=== PATIENT | male | born 1950 | race Caucasian/White ===

== ENCOUNTER 2021-05-01 11:34 | Emergency (ER) | payer OTHER ==
[2021-05-01 12:18] LABS: Basophils % 0.5 % (0-1.3); Hematocrit 43.5 % (39.6-49.0); MPV 8.2 fL (7.6-11.3); RBC Red Blood Cell Count 4.87 M/uL (4.33-5.43)
[2021-05-01 12:19] LABS: Protime INR 1.05
[2021-05-01 12:36] LABS: ALT/SGPT 19 U/L (12-78); AST/SGOT 12 U/L (15-37); Albumin 4.3 g/dL (3.4-5.0); Alkaline Phosphatase 63 U/L (45-117); BUN Blood Urea Nitrogen 15 mg/dL (7-18); Bicarbonate 24 mmol/L (21-32); Bilirubin Direct 0.1 mg/dL (0-0.2); Bilirubin Total 0.5 mg/dL (0.2-1.0); Glucose Level 133 mg/dL (74-106); Magnesium 2.1 mg/dL (1.8-2.4); NT PRO-BNP 245 pg/mL (<125); Potassium 4.1 mmol/L (3.5-5.1); Protein, Total 7.9 g/dL (6.4-8.2); Sodium Level 143 mmol/L (136-145); Troponin (Emerg Dept Use Only) < 0.02 ng/mL (0.0-0.045)
[2021-05-01] MEDS ORDERED: NA CHLORIDE 0.9% 1,000 ML ONE ×2 (12:40→14:59)
--- NOTE | 2021-05-01 13:26 | RAD REPORT ---
EXAM DESCRIPTION: CT - Head Brain Wo Cont - 05/01/2021 12:56 pm CLINICAL HISTORY: DIZZINESS COMPARISON: No comparisons TECHNIQUE: Axial 5 mm thick images of the head were obtained without IV contrast. All CT scans are performed using dose optimization technique as appropriate and may include automated exposure control or mA/KV adjustment according to patient size. FINDINGS: No intracranial hemorrhage, mass, edema or shift of mid-line structures. No acute infarcti on changes seen. No abnormal extra-axial fluid collections. Ventricles are normal. No significant at rophy or chronic ischemic change. Dense arterial tree calcifications are present. Mastoid air cells and visualized portions of the paranasal sinuses are clear. No acute bony findings. Due to technical malfunctions, final report could not be generated at the time of the study. Findings were telephoned to the referring physician. IMPRESSION: Negative non-contrast CT head examination for acute or significant finding.
--- NOTE | 2021-05-01 14:45 | ER ---
Nurse's Notes [facility] Name: Quincy Combs Jr Age: 70 yrs Sex: Male : 1950 Arrival Date: 05/01/2021 Time: 11:37 Bed 23 Private MD: Semaj Chapman Diagnosis: Dizziness and giddiness Presentation: 05/01 11:50 Chief complaint: Patient states: States dizziness began Friday morning. States becomes vg1 dizzy when standing from a sitting position. Denies NV, headache, cough, and ear pain. Stated had diarrhea this morning. Also stated had an ultrasound about a year ago on PRAVEENA legs and was told had 'blockage' in both legs and states that PCP increased Simvastatin from 20 mg to 80 mg. Also states has had a decreased appetite since Friday as well. Coronavirus screen: Vaccine status: Patient reports receiving the 2nd dose of the covid vaccine. Client denies travel out of the [place] in the last 14 days. Ebola Screen: Patient negative for fever greater than or equal to 101.5 degrees Fahrenheit, and additional compatible Ebola Virus Disease symptoms. 11:50 Method Of Arrival: Wheelchair vg1 11:50 Initial Sepsis Screen: Does the patient meet any 2 criteria? No. Patient's initial vg1 sepsis screen is negative. Does the patient have a suspected source of infection? No. Patient's initial sepsis screen is negative. Risk Assessment: Do you want to hurt yourself or someone else? Patient reports no desire to harm self or others. Onset of symptoms was April 29, 2021. 11:50 Acuity: HIRAM 3 vg1 Triage Assessment: 11:54 General: Appears in no apparent distress. comfortable, Behavior is calm, cooperative. vg1 Pain: Denies pain. Historical: - Allergies: 11:54 No Known Allergies; vg1 - Home Meds: 11:54 Simvastatin Oral [Active]; Paxil Oral [Active]; vg1 - PMHx: 11:54 High Cholesterol; vg1 - Immunization history:: Adult Immunizations up to date, Client reports receiving the 2nd dose of the Covid vaccine. - Social history:: Smoking status: Patient reports the use of cigarette tobacco products, smokes one-half pack cigarettes per day. - Family history:: not pertinent. Screenin:30 Abuse screen: Denies threats or abuse. Denies injuries from another. Nutritional ld1 screening: No deficits noted. Tuberculosis screening: No symptoms or risk factors identified. Fall Risk None identified. Assessment: 12:10 General: Appears in no apparent distress. comfortable, Behavior is calm, cooperative, ld1 appropriate for age. 12:10 Pain: Denies pain. Neuro: Level of Consciousness is awake, alert, obeys commands, ld1 Oriented to person, place, time, situation. Neuro: Reports dizziness. Cardiovascular: Capillary refill < 3 seconds Patient's skin is warm and dry. Rhythm is regular. Respiratory: Airway is patent Respiratory effort is even, unlabored, Respiratory pattern is regular, symmetrical. GI: Abdomen is flat, non-distended. : No signs and/or symptoms were reported regarding the genitourinary system. EENT: No signs and/or symptoms were reported regarding the EENT system. Derm: No signs and/or symptoms reported regarding the dermatologic system. Musculoskeletal: No signs and/or symptoms reported regarding the musculoskeletal system. 14:08 Reassessment: Patient appears in no apparent distress at this time. Patient and/or ld1 family updated on plan of care and expected duration. Pain level reassessed. Patient is alert, oriented x 3, equal unlabored respirations, skin warm/dry/pink. Patient denies pain at this time. Patient states feeling better. Vital Signs: 11:50 BP 136 / 84; Pulse 83; Resp 16; Temp 98.5; Pulse Ox 100% ; Weight 77.11 kg; Height 5 vg1 ft. 8 in. (172.72 cm); Pain 0/10; 12:30 BP 143 / 76; Pulse 66; Resp 18; Pulse Ox 100% on R/A; Pain 0/10; ld1 13:00 BP 134 / 83; Pulse 64; Resp 19; Pulse Ox 100% on R/A; Pain 0/10; ld1 14:08 BP 125 / 67; Pulse 80; Resp 18; Pulse Ox 100% on R/A; Pain 0/10; ld1 11:50 Body Mass Index 25.85 (77.11 kg, 172.72 cm) vg1 ED Course: 11:37 Patient arrived in ED. mr 11:37 Semaj Chapman, is Private Physician. mr 11:54 Triage completed. vg1 11:54 Arm band placed on. vg1 11:59 Destiny Prasad MD is Attending Physician. ma2 12:12 Umm Mackey, RN is Primary Nurse. ld1 12:19 CT Head Brain wo Cont In Process Unspecified. EDMS 12:30 Patient has correct armband on for positive identification. Placed in gown. Bed in low ld1 position. Call light in reach. Side rails up X2. property assessment monitor on. Pulse ox on. NIBP on. Door closed. Noise minimized. Warm blanket given. 12:30 No provider procedures requiring assistance completed. Inserted saline lock: 20 gauge ld1 in right antecubital area, using aseptic technique. Blood collected. 13:50 XRAY Chest (1 view) In Process Unspecified. EDMS 15:22 IV discontinued, intact, bleeding controlled, No redness/swelling at site. ld1 Administered Medications: 12:36 Drug: NS 0.9% 1000 ml Route: IV; Rate: 1 bolus; Site: right antecubital; ld1 14:37 Drug: NS 0.9% 1000 ml Route: IV; Rate: 1 bolus; Site: right antecubital; ld1 Outcome: 14:44 Discharge ordered by . ma2 15:22 Discharged to home ambulatory. ld1 15:22 Condition: stable 15:22 Discharge instructions given to patient, family, Instructed on discharge instructions, follow up and referral plans. Demonstrated understanding of instructions, follow-up care. 15:22 Patient left the ED. ld1 Signatures: Dispatcher [employer] EDMS Alycia Peters mr Destiny Prasad MD MD ma2 Carola ePrez RN RN 1 Umm Mackey, LI RN ld1 Corrections: (The following items were deleted from the chart) 13:07 12:12 CORONAVIRUS+[email or web address] drawn and sent. ld1 EDMS
--- NOTE | 2021-05-01 14:45 | EDPHYS ---
Physician Documentation [facility] Name: Quincy Combs Jr Age: 70 yrs Sex: Male : 1950 Arrival Date: 05/01/2021 Time: 11:37 Bed 23 Private MD: Ari [facility] ED Physician Destiny Prasad HPI: 05/01 12:21 This 70 yrs old Male presents to ER via Wheelchair with complaints of ma2 Dizziness. 12:21 The patient presents with dizziness, feeling faint. Onset: The symptoms/episode ma2 began/occurred gradually, 2 day(s) ago. Associated signs and symptoms: Pertinent negatives: blurred vision, confusion, focal weakness, palpitations, , shortness of breath. Severity of symptoms: At their worst the symptoms were mild in the emergency department the symptoms are unchanged. The patient has experienced similar episodes in the past. Historical: - Allergies: 11:54 No Known Allergies; vg1 - Home Meds: 11:54 Simvastatin Oral [Active]; Paxil Oral [Active]; vg1 - PMHx: 11:54 High Cholesterol; vg1 - Immunization history:: Adult Immunizations up to date, Client reports receiving the 2nd dose of the Covid vaccine. - Social history:: Smoking status: Patient reports the use of cigarette tobacco products, smokes one-half pack cigarettes per day. - Family history:: not pertinent. ROS: 12:21 Constitutional: Negative for fever, chills, and weight loss. ma2 12:21 All other systems are negative. Exam: 12:21 Constitutional: This is a well developed, well nourished patient who is awake, alert, ma2 and in no acute distress. Head/Face: Normocephalic, atraumatic. Eyes: Pupils equal round and reactive to light, extra-ocular motions intact. Lids and lashes normal. Conjunctiva and sclera are non-icteric and not injected. Cornea within normal limits. Periorbital areas with no swelling, redness, or edema. ENT: Nares patent. No nasal discharge, no septal abnormalities noted. Tympanic membranes are normal and external auditory canals are clear. Oropharynx with no redness, swelling, or masses, exudates, or evidence of obstruction, uvula midline. Mucous membranes moist. Neck: Trachea midline, no thyromegaly or masses palpated, and no cervical lymphadenopathy. Supple, full range of motion without nuchal rigidity, or vertebral point tenderness. No Meningismus. Chest/axilla: Normal chest wall appearance and motion. Nontender with no deformity. No lesions are appreciated. Cardiovascular: Regular rate and rhythm with a normal S1 and S2. No gallops, murmurs, or rubs. Normal PMI, no JVD. No pulse deficits. Respiratory: Lungs have equal breath sounds bilaterally, clear to auscultation and percussion. No rales, rhonchi or wheezes noted. No increased work of breathing, no retractions or nasal flaring. Abdomen/GI: Soft, non-tender, with normal bowel sounds. No distension or tympany. No guarding or rebound. No evidence of tenderness throughout. Back: No spinal tenderness. No costovertebral tenderness. Full range of motion. Skin: Warm, dry with normal turgor. Normal color with no rashes, no lesions, and no evidence of cellulitis. MS/ Extremity: Pulses equal, no cyanosis. Neurovascular intact. Full, normal range of motion. Neuro: Awake and alert, GCS 15, oriented to person, place, time, and situation. Cranial nerves II-XII grossly intact. Motor strength 5/5 in all extremities. Sensory grossly intact. Cerebellar exam normal. Normal gait. Vital Signs: 11:50 BP 136 / 84; Pulse 83; Resp 16; Temp 98.5; Pulse Ox 100% ; Weight 77.11 kg; Height 5 vg1 ft. 8 in. (172.72 cm); Pain 0/10; 12:30 BP 143 / 76; Pulse 66; Resp 18; Pulse Ox 100% on R/A; Pain 0/10; ld1 13:00 BP 134 / 83; Pulse 64; Resp 19; Pulse Ox 100% on R/A; Pain 0/10; ld1 14:08 BP 125 / 67; Pulse 80; Resp 18; Pulse Ox 100% on R/A; Pain 0/10; ld1 11:50 Body Mass Index 25.85 (77.11 kg, 172.72 cm) vg1 MDM: 11:59 Patient medically screened. nj2 12:21 Differential diagnosis: hypovolemia, near-syncope, syncope, vertigo. Data reviewed: nj2 vital signs, nurses notes. 14:42 Counseling: I had a detailed discussion with the patient and/or guardian regarding: the ma2 historical points, exam findings, and any diagnostic results supporting the discharge/admit diagnosis, the presence of at least one elevated blood pressure reading (>120/80) during this emergency department visit, the need for outpatient follow up. Response to treatment: the patient's symptoms have markedly improved after treatment. Admission orders: after a detailed discussion of the patient's condition and case, the admit orders are written by me. ED course: i offered admission for obs for further eval, patient feels better and want to go home against recommendation understand risk. 05/01 12:00 Order name: Basic Metabolic Panel; Complete Time: 13:56 ma2 05/01 12:00 Order name: CBC with Diff; Complete Time: 13:56 nj2 05/01 12:00 Order name: LFT's; Complete Time: 13:56 nj2 05/01 12:00 Order name: Magnesium; Complete Time: 13:56 nj2 05/01 12:00 Order name: NT PRO-BNP; Complete Time: 13:56 nj2 05/01 12:00 Order name: PT-INR; Complete Time: 13:56 nj2 05/01 12:00 Order name: Troponin (emerg Dept Use Only); Complete Time: 13:56 nj2 05/01 12:00 Order name: XRAY Chest (1 view) [facility] 05/01 12:00 Order name: EKG; Complete Time: 12:01 [facility] 05/01 12:11 Order name: CT Head Brain wo Cont; Complete Time: 13:56 nj2 05/01 13:05 Order name: SARS-COV-2 RT PCR [facility] 05/01 12:00 Order name: Cardiac monitoring; Complete Time: 12:12 nj2 05/01 12:00 Order name: EKG - Nurse/Tech; Complete Time: 12:36 nj2 05/01 12:00 Order name: IV Saline Lock; Complete Time: 12:12 nj2 05/01 12:00 Order name: Labs collected and sent; Complete Time: 12:12 nj2 05/01 12:00 Order name: O2 Per Protocol; Complete Time: 12:12 [facility] 05/01 12:00 Order name: O2 Sat Monitoring; Complete Time: 12:12 nj2 05/01 12:00 Order name: Urine Dipstick-Ancillary (obtain specimen); Complete Time: 12:36 ma2 Administered Medications: 12:36 Drug: NS 0.9% 1000 ml Route: IV; Rate: 1 bolus; Site: right antecubital; ld1 14:37 Drug: NS 0.9% 1000 ml Route: IV; Rate: 1 bolus; Site: right antecubital; ld1 Disposition Summary: 05/01/21 14:44 Discharge Ordered Location: Home ma2 Condition: Stable ma2 Diagnosis - Dizziness and giddiness ma2 Followup: ma2 - With: Private Physician - When: Tomorrow - Reason: Continuance of care Discharge Instructions: - Discharge Summary Sheet ma2 - Dizziness ma2 Forms: - Medication Reconciliation Form ma2 - Thank You Letter ma2 - Antibiotic Education ma2 - Prescription Opioid Use ma2 Signatures: Dispatcher [employer] EDMS Destiny Prasad MD MD ma2 Carola Perez RN RN vg1 Umm Mackey RN RN ld1 Corrections: (The following items were deleted from the chart) 13:07 12:01 CORONAVIRUS+[email or web address] ordered. EDMS EDMS
--- NOTE | 2021-05-01 15:02 | RAD REPORT ---
EXAM DESCRIPTION: [place] Single View05/01/2021 1:50 pm CLINICAL HISTORY: hx of smoker - 40 years 1/2 pack a day. Dizziness COMPARISON: none FINDINGS: Lungs are moderately hyperaerated. The lungs appear clear of acute infiltrate. The heart i s normal size IMPRESSION: Moderately hyperaerated lungs likely COPD Patient may be a candidate for annual low dose lung cancer screening CT
[2021-05-01 15:35] VITALS: TEMP 98.5; O2SAT 100
[2021-05-01 15:39] VITALS: BP 125/67
[2021-05-04 09:48] LABS: Urine Blood 3+ (Negative); Urine Glucose Negative (Negative); Urine Protein Negative (Negative); Urine Specific Gravity 1.025 (1.005-1.030); Urine pH 5.5 (5.0-7.0)
== END 2021-05-01 15:22 | disposition home or self-care (01) ==
LOC: ER 11:34
DX: R42 Dizziness and giddiness (principal); E78.00 Pure hypercholesterolemia, unspecified; F17.210 Nicotine dependence, cigarettes, uncomplicated; Z20.822 Contact with and (suspected) exposure to COVID-19
CPT/HCPCS: 93005; 85025; 80048; 36415; 83735; 85610; 80076; 81003; 84484; 83880; 70450; 71045; 99284; U0003; J7030 ×2

== ENCOUNTER 2023-10-14 07:54 | Day surgery (SDC) | payer OTHER ==
--- NOTE | 2023-10-06 09:18 | RAD REPORT ---
EXAM DESCRIPTION: RAD - Chest Pa And Lat (2 Views) - 10/06/2023 9:11 am CLINICAL HISTORY: pre op pending TURBT Chest pain. COMPARISON: Chest Single View dated 05/01/2021 TECHNIQUE: PA and lateral views of the chest were obtained. FINDINGS: The lungs are hyperexpanded compatible with COPD. The heart is upper limit of normal in si ze. No fracture or aggressive bony process. IMPRESSION: COPD without acute process identified. The USPSTF recommends annual screening for lung cancer with low-dose CT (LDCT) in adults aged 50 to 80 years who have a 20 pack-year smoking history and currently smoke or have quit within the past 15 years.
[2023-10-06 09:45] LABS: Absolute Eosinophils 0.5 K/uL (0-0.5); Absolute Lymphocytes (CBC) 1.4 K/uL (0.7-4.9); Absolute Monocytes 0.4 K/uL (0.1-1.3); Absolute Neutrophil 3.3 K/uL (1.8-8.0); Basophils % 0.8 % (0-1.3); Eosinophils % 9.4 % (0-4.4); Hematocrit 37.3 % (39.6-49.0); Hemoglobin 12.7 g/dL (13.6-17.9); Lymphocytes % 24.9 % (15.3-44.8); MCH 30.7 pg (27.0-35.0); MCHC 34.1 g/dL (32.0-36.0); Monocytes % 7.2 % (3.3-12.3); Neutrophils % 57.7 % (41.7-73.7); Platelets 172 thou/uL (152-406); RBC Red Blood Cell Count 4.14 M/uL (4.33-5.43)
[2023-10-06 09:48] LABS: PT Prothrombin Time 10.8 SECONDS (9.5-12.5); PTT, Activated Partial Thromb 32.8 SECONDS (24.3-36.9); Protime INR 0.98
[2023-10-06 09:52] LABS: Anion Gap 5.1 mEq/L (5.0-15.0); Potassium 4.1 mEq/L (3.5-5.1)
[2023-10-14] MEDS ORDERED: Ringers Lactate 1,000 ML IV ONE (08:12)
[2023-10-14] MEDS ORDERED: propofoL 200 MG/20 ML VIAL IV ONE (09:20)
[2023-10-14] MEDS ORDERED: LIDOCAINE 1% MPF 5 ML VIAL ONE (09:20)
[2023-10-14] MEDS ORDERED: FENTANYL CITR 100 MCG/2 ML ONE (09:21)
[2023-10-14] MEDS ORDERED: ROCURONIUM 50 MG/5 ML VIAL IV ONE ×2 (09:21→11:58)
[2023-10-14] MEDS ORDERED: MIDAZOLAM HCL 2 MG/2 ML INJ ONE (09:21)
[2023-10-14] MEDS ORDERED: CEFAZOLIN SODIUM 1 GM/VIAL ONE ×2 (10:27→11:12)
[2023-10-14] MEDS ORDERED: LIDOCAINE 2% MPF 5 ML VIAL ONE (10:36)
[2023-10-14] MEDS ORDERED: dexAMETHasone 10 MG/ML VIAL ONE (10:51)
[2023-10-14] MEDS ORDERED: ONDANSETRON 4 MG/2 ML VIAL ONE (10:51)
[2023-10-14] MEDS ORDERED: EPHEDRINE SULF 50 MG/ML VIAL ONE (10:58)
[2023-10-14] MEDS: GEMCITABINE HCL 26.3 ML IS ONE (11:06)
[2023-10-14] MEDS ORDERED: NEOSTIGMINE 1 MG/ML -10 ML VIAL ONE (12:41)
[2023-10-14] MEDS ORDERED: GLYCOPYRROLATE 0.2 MG/ML SYR ONE ×2 (12:42)
[2023-10-14] MEDS: Ringers Lactate 1,000 ML IV ONE (12:58)
[2023-10-14] MEDS ORDERED: DIAZEPAM 10 MG/2 ML INJ SYRINGE IV ONE (13:14)
[2023-10-14] MEDS ORDERED: HYDROCODONE/APAP 5/325 MG TAB PO PRN (13:14)
[2023-10-14] MEDS ORDERED: OXYBUTYNIN ER 5 MG TAB PO ONE ×2 (13:20→13:22)
[2023-10-14] MEDS: OXYBUTYNIN ER 5 MG TAB PO ONE (13:24)
[2023-10-14] MEDS ORDERED: LIDOCAINE JELLY 2% 5 ML SYRINGE TOP ONE (14:11)
[2023-10-14] MEDS ORDERED: PHENAZOPYRIDINE 100MG TAB PO ONE (14:54)
[2023-10-14] MEDS: PHENAZOPYRIDINE 100MG TAB PO ONE (14:55)
[2023-10-14 15:53] VITALS: BP 118/64; TEMP 96.9; O2SAT 100
--- NOTE | 2023-10-14 17:18 | OP ---
Surgeon: ESME ROSA Preoperative Diagnosis: Extensive bladder tumor, greater than 5 to 7 cm. Postoperative Diagnosis: Extensive bladder tumor, greater than 5 to 7 cm. Principal Procedures: 1.Urethral dilation using sounds. 2.Transurethral resection of a bladder tumor larger than 5 to 7 cm. 3.Insertion of a urethral Pizarro catheter. 4.Instillation of gemcitabine 2 g in 50 cc normal saline intravesical chemotherapy. Findings: Extensive bladder tumor involving the bladder neck bilaterally, extending into the trigone bilaterally, covering the right ureteral orifice and extending posteriorly and laterally on the righ t. The right ureteral orifice was resected as it was grossly involved by the tumor until no additional p apillary tumor was noted emanating from the orifice itself. The left ureteral orifice was unaffected and visualized. At the end of the procedure, all visible tumor had been resected. Indication For Procedure: This is a 73-year-old gentleman who presented to the Urology Clinic with g ross hematuria and underwent cystoscopic evaluation following a negative CT urography which revealed a mass in the bladder that was on CT 5.9 x 4.2 cm in greatest axial dimension and 3.8 cm in craniocau yvonne extent. This was consistent with the finding seen cystoscopically, and he was counseled on the n eed for surgical resection for treatment as well as staging of his bladder cancer. Procedure In Detail: The patient was consented in the preoperative holding area before being transfe rred to the operative suite where general anesthesia was induced. He was given Ancef 2 g IV antimicr obial prophylaxis, and pneumo boots were provided for DVT prophylaxis. He was placed in the lithotom y position, padded and secured to the table appropriately. His genitalia were prepped with Hibiclens and he was draped in standard fashion. The case was begun using urethral sounds to dilate his meatu s and fossa navicularis to 28-Irish. I then was able to use a visual obturator and the 26-Irish re sectoscope sheath to traverse the urethra and ultimately into the bladder. Upon navigation beyond th e verumontanum into the prostatic urethra, immediately bulging into the proximal portion of the prost atic urethra at the bladder neck was papillary tumor. I was able to push past this into the bladder where the entire right lateral posterior wall was covered with tumor and the bladder neck was similar ly covered bilaterally obscuring visualization. As a result, I ensured his bladder was distended and began resection of the more superficial components of the tumor, whittling it down like cutting and trimming shrubs over the course of probably more than 45 minutes to an hour of resection. I was pipe hu able, after multiple rounds of Ellik evacuation to remove the burden of tumor, to visualize the n ear base component of the tumor and continued to resect it from the regions of the bladder, taking ca re to avoid inadvertent injury and perforation of the bladder. Eventually, I was able to resect the majority of the tumor from the bladder neck in its entirety and then continued the resection down unt il it was visible over the right ureteral orifice. I resected all tumor overlying the lateral aspect of the ureteral orifice and then the medial aspect involving the trigone before surveying the orific e itself. There was a papillary nature to some tissue bulging from the ureteral orifice; so I sharpl y resected a few millimeters of the ureteral orifice until no papillary tumor was noted emanating fro m within. I then continued the superficial resection of any additional visible mucosal change and tu mor where ever else in the bladder it was visible. Once all tumor had been Ellik evacuated from insi de his bladder, I then made a concerted effort to achieve hemostasis, fulgurating each and every blee ding and oozing vessel visible, taking care to avoid fulguration around the right ureteral orifice. I was able to separately visualize left ureteral orifice, which was uninvolved and uninjured. After extensive fulguration and gaining control over hemostasis, I ensured circulating tumor was removed an d again surveyed the entirety of the bladder, this time with more optimal visualization. Any additio nal residual mucosal change was similarly superficially resected and fulguration of the entirety of t he base of the tumor as well as some neovascularization emanating from the posterior wall of the blad amanda was also fulgurated again taking care to avoid injury to the left ureteral orifice or fulguration over the resected right ureteral orifice. In the end, no residual mucosal lesions were noted, and I ensured to Ellik evacuate or directly using direct visualization remove any residual floating papill anabelle urothelial neoplasms. Once I was confident that the bladder was hemostatic and all tumor tissue had been removed, I then placed an 18-Irish Pizarro catheter into his bladder with ease. 15 cc of ramy rile water was placed in the balloon, and I allowed the bladder to decompress completely. I then ret rograde instilled gemcitabine 2 g in 50 cc normal saline via the catheter into his bladder. I used a Neema clamp to keep the fluid instilled within and attached a leg bag for ease of subsequent decompr ession of the chemotherapy. Several towels were used as a fluid barrier around his genitalia to prev ent exposure of the chemotherapy to his skin, and a fluid impermeable drape was placed beneath the en tirety of the catheter and the towel structure. He was then taken out of the lithotomy position, katy kened from general anesthesia, transferred to a stretcher, and then transferred to the recovery room in good condition. Complications: None. Discharge Disposition: He will keep the chemotherapy for the next 90 minutes and we will discharge h im with the urethral Pizarro catheter to gravity. I would like him to keep the catheter for the next 2 to 3 days and we will give him a voiding trial in the office on Friday. I will discharge him with a few days of antimicrobial for prophylaxis. Subsequent followup should be established in about 2 wee ks' time to discuss the results of the pathology and determine next steps, which will be required giv en the extensive nature of the tumor. ISH/MODL Voice ID: [id number] Report ID: [id number]
== END 2023-10-14 15:30 | disposition home or self-care (01) ==
LOC: OR 07:54
PROVIDERS: ATTEND Urology
PROC: 0TBC8ZZ Excision of Bladder Neck, Via Natural or Artificial Opening Endoscopic (ICD-10-PCS; 2023-10-14)
PROC: 3E0K705 Introduction of Other Antineoplastic into Genitourinary Tract, Via Natural or Artificial Opening (ICD-10-PCS; 2023-10-14)
PROC: 0TBB8ZZ Excision of Bladder, Via Natural or Artificial Opening Endoscopic (ICD-10-PCS; principal; 2023-10-14 09:30)
DX: C67.8 Malignant neoplasm of overlapping sites of bladder (principal); R31.0 Gross hematuria
CPT/HCPCS: 36415; 71046; 80048; 85025; 85610; 85730; 87086; 87088; 88304; 88307; J0690; J1100; J2001; J2250; J2405; J2704; J2710; J3010; J7120; J9201

== ENCOUNTER 2023-11-18 10:16 | Day surgery (SDC) | payer OTHER ==
[2023-11-05 09:26] LABS: Absolute Basophils 0.1 K/uL (0-0.5); Absolute Eosinophils 0.3 K/uL (0-0.5); Absolute Lymphocytes (CBC) 1.4 K/uL (0.7-4.9); Absolute Monocytes 0.4 K/uL (0.1-1.3); Basophils % 0.8 % (0-1.3); Eosinophils % 5.2 % (0-4.4); Hematocrit 38.1 % (39.6-49.0); Hemoglobin 12.6 g/dL (13.6-17.9); Lymphocytes % 23.1 % (15.3-44.8); MCH 30.1 pg (27.0-35.0); MCV 91.2 fL (80-100); MPV 8.4 fL (7.6-11.3); Neutrophils % 63.9 % (41.7-73.7); Platelets 307 thou/uL (152-406); RBC Red Blood Cell Count 4.18 M/uL (4.33-5.43); Red Cell Distribution Width 14.4 % (12.1-15.2)
[2023-11-05 09:33] LABS: Anion Gap 4.1 mEq/L (5.0-15.0); Potassium 4.1 mEq/L (3.5-5.1)
[2023-11-05 11:56] LABS: PT Prothrombin Time 10.4 SECONDS (9.5-12.5); PTT, Activated Partial Thromb 33.5 SECONDS (24.3-36.9); Protime INR 0.94
--- NOTE | 2023-11-06 16:46 | EKG ---
Test Date: 2023-11-05 Test Time: 08:50:33 Tappet Adjuster: BRIGHT MEASUREMENT RESULTS: Intervals: Rate: 61 WY: 138 QRSD: 84 QT: 404 QTc: 406 Pisek: P: 82 WY: 138 QRS: 82 T: 81 INTERPRETIVE STATEMENTS: Normal sinus rhythm Normal ECG Compared to ECG 05/01/2021 12:30:48 ST (T wave) deviation no longer present Electronically Signed On 11-06-23 16:42:13 CDT by Zaire Schaeffer
[2023-11-18] MEDS ORDERED: Ringers Lactate 1,000 ML IV ONE ×2 (10:32→15:22)
[2023-11-18] MEDS ORDERED: ONDANSETRON 4 MG/2 ML VIAL ONE (11:16)
[2023-11-18] MEDS ORDERED: propofoL 200 MG/20 ML VIAL IV ONE (11:16)
[2023-11-18] MEDS ORDERED: LIDOCAINE 1% MPF 5 ML VIAL ONE (11:17)
[2023-11-18] MEDS ORDERED: FENTANYL CITR 100 MCG/2 ML ONE (11:17)
[2023-11-18] MEDS ORDERED: EPHEDRINE SULF 50 MG/ML VIAL ONE (13:38)
[2023-11-18] MEDS: AMPICILLIN SODIUM 2 GM/VIAL VIAL ONE (13:40)
[2023-11-18] MEDS: GENTAMICIN 80 MG/100 ML BAG 160 MG/200 ML BAG IV ONE (13:42)
[2023-11-18] MEDS ORDERED: dexAMETHasone 10 MG/ML VIAL ONE (13:52)
[2023-11-18] MEDS ORDERED: GLYCOPYRROLATE 0.2 MG/ML SYR ONE (13:52)
[2023-11-18] MEDS ORDERED: ROCURONIUM 50 MG/5 ML VIAL IV ONE (13:59)
[2023-11-18] MEDS ORDERED: PHENAZOPYRIDINE 100MG TAB PO ONE (15:12)
[2023-11-18] MEDS ORDERED: CODEINE 30MG/APAP 300MG TAB PO PRN (15:12)
[2023-11-18 15:26] VITALS: O2SAT 99
[2023-11-18 17:35] VITALS: BP 150/70; TEMP 97.6
--- NOTE | 2023-11-19 07:54 | OP ---
Surgeon: ESME ROSA Preoperative Diagnoses: 1.T1 high-grade papillary urothelial carcinoma. 2.Status post transurethral resection of bladder tumor, 10/14/2023. Postoperative Diagnoses: 1.T1 high-grade papillary urothelial carcinoma. 2.Status post transurethral resection of bladder tumor, 10/14/2023. Principal Procedures: 1.Cystoscopy. 2.Restaging transurethral resection of bladder tumor. 3.Right ureteral stent placement. Indication For Procedure: Mr. Combs presented to the [facility] with gross and microscopic hemat uria and was found to have a bladder tumor. He underwent resection revealing pathologic stage T1 hig h-grade urothelial carcinoma and he received perioperative intravesical gemcitabine chemotherapy. He presents today for restaging TURBT given the 35% risk of muscularis propria invasion missed on the i nitial evaluation. Procedure In Detail: The patient was consented in the preoperative holding area before being transfe rred to the operative suite where general anesthesia was induced. He was given ampicillin 2 g and ge ntamicin 2-3 mg/kg IV antimicrobial prophylaxis, and pneumo boots were provided for DVT prophylaxis. He was placed in the lithotomy position, padded and secured to the table appropriately, and his [place] was prepped with Hibiclens before being draped in standard fashion. The case was begun using a 22-Wolof rigid cystoscope to traverse the urethra and into the bladder with ease. The bladder was surveyed in its entirety, and no additional suspicious papillary mucosal lesions, foreign bodies or s tones were noted throughout. There was significant fibrinous debris in the region of prior resection and the base of the bladder and extending into the bladder neck on the right. The right ureteral or ifice, which was previously spared and not resected, had a slight degree of irregularity of the mucos a that was perceptible on this evaluation. The left ureteral orifice was uninvolved. As a result, I switched to a 26-Wolof sheath and visual obturator and passed the resectoscope sheath into his blad amanda. I then utilized a thin loop at a cautery setting of 120 cut and 50 coag and began to resect all of the fibrinous debris down to the base and normal muscularis tissue visible. This was all sent fo r pathologic analysis as base of bladder. I then fulgurated the bleeding component of that resection before turning my attention to the right ureteral orifice. Given its abnormal appearance, I elected to resect the right ureteral orifice; so, I utilized the electrode and made a single motion to resec t the right ureteral orifice, which was collected and sent for pathologic analysis as a separate spec imen. I then surveyed the ureteral orifice opening. While there was not definitive papillary lesion suspicious for malignancy, there was some irregular tissue within the mucosa of the ureteral lumen. It was not obstructed; however, given the resection and the absence of residual cancer seen within h is bladder, I elected to place a Sensor wire via the orifice putatively into his kidney and placed a 6-Wolof by 26 cm double-J ureteral stent over that wire, presumably into the kidney as the stent pas sed smoothly and with no resistance. A coil was formed visibly within the bladder, but as before, no fluoroscopic imagery was used in this case. I then decompressed his bladder of fluid and urine and took him out of the lithotomy position. He was then awakened from general anesthesia, transferred to a stretcher, and then transferred to the recovery room in good condition. Complications: None. Discharge Disposition: As long as we can confirm no additional more invasive bladder cancer, specifi rocky no muscularis propria invasion, the next step would involve intravesical BCG immunotherapy admi nistration as an induction course. Since he has a stent in place, he will be counseled on the potent ial for increased BCG immunogenicity with the potential for fever or chills during the therapy. Furt her, if pathologically, there is evidence of tumor within the right ureteral orifice, this may need to be separately assessed with ureteroscopy to define the extent of t umor involvement. ISH/ESHA Voice ID: [id number] Report ID: [id number]
== END 2023-11-18 16:57 | disposition home or self-care (01) ==
LOC: OR 10:16
PROVIDERS: ATTEND Urology
PROC: 0TB68ZX Excision of Right Ureter, Via Natural or Artificial Opening Endoscopic, Diagnostic (ICD-10-PCS; 2023-11-18)
PROC: 0TBB8ZZ Excision of Bladder, Via Natural or Artificial Opening Endoscopic (ICD-10-PCS; principal; 2023-11-18 12:00)
PROC: 0T768DZ Dilation of Right Ureter with Intraluminal Device, Via Natural or Artificial Opening Endoscopic (ICD-10-PCS; 2023-11-18 12:00)
DX: C67.9 Malignant neoplasm of bladder, unspecified (principal); C79.19 Secondary malignant neoplasm of other urinary organs; R30.0 Dysuria; E78.5 Hyperlipidemia, unspecified; N18.9 Chronic kidney disease, unspecified
CPT/HCPCS: 52332; 52235; 52354; 93005; 87088; 85025; 87086; 80048; 36415; 85610; 88305; 85730; 87077; 87186; J2704; J2001; J3010; J1100; J2405; J0290; J7120 ×2; J1580

== ENCOUNTER 2024-09-21 08:33 | Day surgery (SDC) | payer OTHER ==
[2024-09-09 09:25] LABS: Absolute Basophils 0.1 K/uL (0-0.5); Absolute Eosinophils 0.4 K/uL (0-0.5); Absolute Lymphocytes (CBC) 1.5 K/uL (0.7-4.9); Absolute Monocytes 0.4 K/uL (0.1-1.3); Absolute Neutrophil 3.7 K/uL (1.8-8.0); Basophils % 0.9 % (0-1.3); Hemoglobin 13.3 g/dL (13.6-17.9); Lymphocytes % 24.2 % (15.3-44.8); MCH 31.6 pg (27.0-35.0); MCV 90.2 fL (80-100); MPV 9.4 fL (7.6-11.3); Monocytes % 6.9 % (3.3-12.3); Platelets 167 thou/uL (152-406); RBC Red Blood Cell Count 4.21 M/uL (4.33-5.43); Red Cell Distribution Width 14.1 % (12.1-15.2)
[2024-09-09 09:38] LABS: PT Prothrombin Time 10.3 SECONDS (10.0-13.0); PTT, Activated Partial Thromb 31.2 SECONDS (24.3-36.9); Protime INR 0.9
[2024-09-09 09:39] LABS: Anion Gap 10.3 mEq/L (5.0-15.0); Potassium 4.3 mEq/L (3.5-5.1)
--- NOTE | 2024-09-09 10:58 | RAD REPORT ---
EXAMINATION: TWO VIEW CHEST XR CLINICAL INDICATION: Male, 74 years old. [facility] Pre-op pending bladder biopsies. Hypertension TECHNIQUE: 2 view radiographs of the chest were performed. COMPARISON: 10/06/2023 FINDINGS: The lungs are well inflated and clear. No pneumothorax or sizable effusion. The heart is normal in si ze. Mediastinal contours are unremarkable. IMPRESSION: No acute or significant abnormalities.
--- NOTE | 2024-09-09 16:43 | EKG ---
Test Date: 2024-09-09 Test Time: 09:27:53 Compound Finisher: ELIN MEASUREMENT RESULTS: Intervals: Rate: 65 NE: 136 QRSD: 88 QT: 400 QTc: 416 [place]: P: 81 NE: 136 QRS: 79 T: 73 INTERPRETIVE STATEMENTS: Normal sinus rhythm Normal ECG Compared to ECG 11/05/2023 08:50:33 No significant changes Electronically Signed On 09-09-24 16:42:25 SERVICE TEAM LEADER by Kelechi Kaiser
[2024-09-21] MEDS ORDERED: Ringers Lactate 1,000 ML IV ONE (09:08)
[2024-09-21] MEDS ORDERED: propofoL 200 MG/20 ML VIAL IV ONE (12:33)
[2024-09-21] MEDS ORDERED: ONDANSETRON 4 MG/2 ML VIAL ONE (12:33)
[2024-09-21] MEDS ORDERED: FENTANYL CITR 100 MCG/2 ML ONE (12:33)
[2024-09-21] MEDS ORDERED: LIDOCAINE 1% MPF 5 ML VIAL ONE (12:34)
[2024-09-21] MEDS: CEFAZOLIN SODIUM 2 GM/VIAL ONE (13:04)
[2024-09-21] MEDS ORDERED: GLYCOPYRROLATE 0.2 MG/ML SYR ONE (13:06)
[2024-09-21] MEDS ORDERED: EPHEDRINE SULF 50 MG/ML VIAL ONE (13:06)
[2024-09-21] MEDS ORDERED: dexAMETHasone 10 MG/ML VIAL ONE (13:07)
[2024-09-21] MEDS: Gemcitabine 52.6 ML IS ONE (13:10)
[2024-09-21] MEDS ORDERED: DIAZEPAM 5 MG TABLET PO ONE (13:48)
[2024-09-21] MEDS ORDERED: PHENAZOPYRIDINE 100MG TAB PO ONE (13:48)
[2024-09-21] MEDS ORDERED: OXYBUTYNIN ER 5 MG TAB PO ONE (13:48)
--- NOTE | 2024-09-21 14:02 | P.OP ---
Date of Service: 09/21/24 Preoperative diagnoses: Recurrent bladder tumor p BCG induction and maintenance x 1 h/o T1 high-grade urothelial carcinoma of the bladder Postoperative diagnoses: Recurrent bladder tumor p BCG induction and maintenance x 1 h/o T1 high-grade urothelial carcinoma of the bladder Principal procedures: Cystoscopy with bladder biopsies and fulguration Insertion of an 18 Austrian urethral Pizarro catheter Instillation of intravesical gemcitabine 2 g in 50 cc normal saline Indication for procedure: 74-year-old gentleman chronic smoker with history of focal lamina propria invasion high-grade urothelial carcinoma resected 10/14/2023. He underwent restaging TURBT with no residual disease identified and subsequently underwent an induction course of BCG. Initial follow-up cystoscopy, where the ureteral stent was also extracted, was negative, but after a maintenance phase of the BCG he underwent follow-up cystoscopy which revealed recurrence of a papillary tumor from his right lateral wall. As a result, this was now BCG refractory disease with recurrence within 6 months of initiation of therapy, high risk disease. Procedure note: The patient was consented in the preoperative holding area before being transferred to the operative suite where general anesthesia was induced. He was given Ancef 2 g IV antimicrobial prophylaxis, and pneumoboots were provided for DVT prophylaxis. He was placed in the lithotomy position, padded and secured to the table appropriately. His genitalia was prepped with Hibiclens and he was draped in standard fashion. The case has begun using a 22 Austrian rigid cystoscope to traverse the urethra and into the bladder with relative ease. The bladder was surveyed in its entirety and was markedly trabeculated throughout. Within the right lateral wall, there was an approximately 1 to 1.5 cm papillary urothelial neoplasm. No other papillary tumors were identified throughout the remainder of his bladder on survey with both a 30 degree and 70 degree lens. As a result, I utilized a cold cup biopsy forcep to resect the tumor, biopsying and removing the tumor down into the muscularis layers of the bladder. This was sent for pathologic analysis. I then utilized a Bugbee electrode with a cautery setting of 30 to fulgurate the entire base of the lesion resected. Once completely hemostatic with the bladder decompressed, I irrigated his bladder and removed some circulating tumor debris. I then again surveyed the bladder neck using a 70 degree lens to ensure no additional tumors were seen, and once I was convinced, I left the bladder full and retracted the cystoscope removing it. I then replaced an 18 Austrian Pizarro catheter via his urethra into his bladder with relative ease and decompressed of fluid and urine. Towels were used to drape his genitalia and I then retrograde instilled gemcitabine 2 g and 50 cc NS into his bladder with ease. The catheter was clamped to keep the chemotherapy in situ, and it was associated with a leg bag for ease of subsequent decompression. The catheter and bag were placed into fluid impermeable drapery and the patient taken out of the lithotomy position. He was then awakened from general anesthesia before being transferred to a stretcher. He was then transferred to the recovery room in good condition. Complications: None Discharge disposition: He should follow-up within the next 1 to 2 weeks to discuss the results of the pathology and determine next steps in treatment. Likely, given the high risk nature of his disease, he may require sequential intravesical gemcitabine followed by docetaxel chemotherapy, but if the recurrent disease is indeed low- grade as opposed to high-grade, he may do well with an induction course of gemcitabine alone. We will discuss this in detail on follow-up depending on the results of the pathology.
[2024-09-21 14:11] VITALS: O2SAT 98
[2024-09-21 15:06] VITALS: TEMP 97.7
[2024-09-21 17:30] VITALS: BP 144/60
[2024-09-21] MEDS ORDERED: NA CHLORIDE 0.9% 500 ML ONE (18:19)
[2024-09-21] MEDS: NA CHLORIDE 0.9% 500 ML ONE (18:33)
[2024-09-21] MEDS: FUROSEMIDE 40 MG/4 ML VIAL ONE (18:34)
== END 2024-09-21 19:15 | disposition home or self-care (01) ==
LOC: OR 08:33
PROVIDERS: ATTEND Urology
PROC: 3E0K705 Introduction of Other Antineoplastic into Genitourinary Tract, Via Natural or Artificial Opening (ICD-10-PCS; 2024-09-21)
PROC: 0TBB8ZX Excision of Bladder, Via Natural or Artificial Opening Endoscopic, Diagnostic (ICD-10-PCS; principal; 2024-09-21 09:45)
DX: C79.11 Secondary malignant neoplasm of bladder (principal); Z85.51 Personal history of malignant neoplasm of bladder
CPT/HCPCS: 93005; 87088; 85025; 87086; 80048; 36415; 85610; 88305; 85730; 71046; 52204; 51720; J2704; J2003; J1940; J3010; J1100; J2405; J7120; J7040 ×2

== ENCOUNTER 2024-10-05 07:33 | Day surgery (SDC) | payer OTHER ==
[2024-10-05 08:07] LABS: Specific Gravity 1.009 (1.005-1.030); Urine Bilirubin NEGATIVE (Negative); Urine Blood Negative (Negative); Urine Clarity Clear (Clear); Urine Color Light-Yellow (Yellow); Urine Glucose NEGATIVE (Negative); Urine Ketones NEGATIVE (Negative); Urine Microscopic Reflex YN NO UMIC; Urine Nitrite NEGATIVE (Negative); Urine Protein NEGATIVE (Negative); Urine Urobilinogen Normal (Normal)
[2024-10-05] MEDS: DIAZEPAM 5 MG TABLET ONE (08:20)
[2024-10-05] MEDS: OXYBUTYNIN ER 5 MG TAB PO ONE (08:20)
[2024-10-05] MEDS: LIDOCAINE JELLY 2% 5 ML SYRINGE TOP ONE (08:45)
[2024-10-05] MEDS ORDERED: Gemcitabine 52.6 ML IS ONE (09:00)
[2024-10-05 11:59] VITALS: BP 124/64; TEMP 98.5; O2SAT 98; BMI 25.0
--- NOTE | 2024-10-05 14:49 | P.PN ---
Date of Service: 10/05/24 Preprocedure diagnoses: Recurrent bladder tumor p BCG induction and maintenance x 1 h/o T1 high-grade urothelial carcinoma of the bladder Postprocedure diagnoses: Recurrent bladder tumor p BCG induction and maintenance x 1 h/o T1 high-grade urothelial carcinoma of the bladder Principal procedures: Placement of urethral Pizarro catheter Instillation of intravesical gemcitabine 2 g in 50 cc normal saline, #2 of 6 installations Indication for procedure: 74-year-old gentleman chronic smoker with history of focal lamina propria invasi on high-grade urothelial carcinoma resected 10/14/2023. He underwent restaging TURBT with no residual disease identified and subsequently underwent an induction course of BCG. Initial follow-up cystoscopy, where the ureteral stent was also extracted, was negative, but after a maintenance phase of the BCG he underwent follow-up cystoscopy which revealed recurrence of a papillary tumor from his right lateral wall. As a result, this was now BCG refractory disease with recurrence within 6 months of initiation of therapy, high risk disease, pathologically found to be TA high-grade disease. 08/25/2024 CT urogram was unremarkable. Since he underwent intravesical gemcitabine instillation in the immediate perioperative period on 09/21/2024, this will be the continuation of an induction course. Procedure note: The patient was consented in the preoperative holding area, placed supine on the procedure table, and his genitalia prepped with Betadine before being draped in standard fashion. A urinalysis was sent, and he was given a dose of Ditropan 10 mg extended release followed by Valium 5 mg to decrease any bladder spasm activity. Lidocaine Uro-Jet was applied intraurethrally for local anesthesia. An 18 Bolivian Pizarro catheter was placed into his bladder with ease. A urinalysis was performed and was nonsuspicious. His bladder was allowed to decompress. During this time, I draped his genitalia with sterile absorbent towels, and I brought his phallus through a hiatus in the drape. I then retrograde instilled 52.5 cc of the gemcitabine 2 g in 50 cc NS into his bladder. I attached a leg bag for subsequent ease of decompression after using a Neema clamp to clamp off and keep the fluid within the bladder. He tolerated the instillation well and without any immediate complications. He was allowed to keep the gemcitabine intravesical for a minimum of 60 minutes, targeting 90 minutes of therapy, before it was decompressed into an attached leg bag. The catheter was then removed, and the patient was discharged from the holding area in good condition. Complications: None Discharge disposition: He should follow-up next week for installation #3 of 6 intravesical gemcitabine. Subsequent outpatient cystoscopy around 12/22/2024.
== END 2024-10-05 11:17 | disposition home or self-care (01) ==
LOC: DS 07:33
PROVIDERS: ATTEND Urology
PROC: 3E0K705 Introduction of Other Antineoplastic into Genitourinary Tract, Via Natural or Artificial Opening (ICD-10-PCS; principal; 2024-10-05)
DX: C67.9 Malignant neoplasm of bladder, unspecified (principal); C68.9 Malignant neoplasm of urinary organ, unspecified
CPT/HCPCS: 81003; 51720; J9201

== ENCOUNTER 2024-11-02 06:24 | Day surgery (SDC) | payer OTHER ==
[2024-11-02] MEDS: OXYBUTYNIN ER 5 MG TAB PO ONE (06:32)
[2024-11-02 06:50] LABS: Specific Gravity 1.015 (1.005-1.030); Urine Bilirubin NEGATIVE (Negative); Urine Blood Negative (Negative); Urine Clarity Clear (Clear); Urine Color Yellow (Yellow); Urine Culture Reflex Order REFLEXED; Urine Glucose NEGATIVE (Negative); Urine Ketones NEGATIVE (Negative); Urine Microscopic Reflex YN NO UMIC; Urine Nitrite NEGATIVE (Negative); Urine Protein NEGATIVE (Negative); Urine Urobilinogen Normal (Normal); Urine pH 5.5 (5.0-7.0)
[2024-11-02] MEDS: DIAZEPAM 5 MG TABLET ONE (06:57)
[2024-11-02] MEDS: LIDOCAINE JELLY 2% 5 ML SYRINGE TOP ONE (07:01)
[2024-11-02 07:03] VITALS: BP 125/69; TEMP 97.9; O2SAT 98
[2024-11-02 07:04] VITALS: BMI 22.8
[2024-11-02] MEDS ORDERED: Gemcitabine 52.6 ML IS ONE (08:00)
--- NOTE | 2024-11-02 18:08 | P.PN ---
Date of Service: 11/02/24 Preprocedure diagnoses: Recurrent bladder tumor p BCG induction and maintenance x 1 h/o T1 high-grade urothelial carcinoma of the bladder Postprocedure diagnoses: Recurrent bladder tumor p BCG induction and maintenance x 1 h/o T1 high-grade urothelial carcinoma of the bladder Principal procedures: Placement of urethral Pizarro catheter Instillation of intravesical gemcitabine 2 g in 50 cc normal saline, #6 of 6 installations Indication for procedure: 74-year-old gentleman chronic smoker with history of focal lamina propria invasi on high-grade urothelial carcinoma resected 10/14/2023. He underwent restaging TURBT with no residual disease identified and subsequently underwent an induction course of BCG. Initial follow-up cystoscopy, where the ureteral stent was also extracted, was negative, but after a maintenance phase of the BCG he underwent follow-up cystoscopy which revealed recurrence of a papillary tumor from his right lateral wall. As a result, this was now BCG refractory disease with recurrence within 6 months of initiation of therapy, high risk disease, pathologically found to be TA high-grade disease. 08/25/2024 CT urogram was unremarkable. Since he underwent intravesical gemcitabine instillation in the immediate perioperative period on 09/21/2024, this is the continuation of an induction course. Procedure note: The patient was consented in the preoperative holding area, placed supine on the procedure table, and his genitalia prepped with Betadine before being draped in standard fashion. A urinalysis was sent, and he was given a dose of Ditropan 10 mg extended release followed by Valium 5 mg to decrease any bladder spasm activity. Lidocaine Uro-Jet was applied intraurethrally for local anesthesia. An 18 Turkish Pizarro catheter was placed into his bladder with ease. A urinalysis was performed and was nonsuspicious. His bladder was allowed to decompress. During this time, I draped his genitalia with sterile absorbent towels, and I brought his phallus through a hiatus in the drape. His urine was clear yellow. While he had a slight degree of urinary urgency/bladder spasm, he noted it was not as bad this week as it was last week. I then retrograde instilled 52.5 cc of 2 g gentamicin and NS into his bladder with ease and no adverse symptomatology. I attached a leg bag for subsequent ease of decompression after using a Neema clamp to clamp off and keep the fluid within the bladder. He tolerated the instillation well and without any immediate complications. He was allowed to keep the gemcitabine intravesical for as long as he could tolerate, which ended up being about 45 minutes this time, before it was decompressed into an attached leg bag. The catheter was then removed, and the patient was discharged from the holding area in good condition. Complications: None Discharge disposition: Subsequent outpatient cystoscopy around 12/22/2024.
== END 2024-11-02 08:50 | disposition home or self-care (01) ==
LOC: DS 06:24 → EDSTATUS 08:00 → DS 08:50
PROVIDERS: ATTEND Urology
DX: C67.9 Malignant neoplasm of bladder, unspecified (principal); C68.9 Malignant neoplasm of urinary organ, unspecified
CPT/HCPCS: 87088; 87086; 81003; 51720; J9201

== ENCOUNTER 2024-11-30 06:24 | Day surgery (SDC) | payer OTHER ==
[2024-11-30] MEDS: OXYBUTYNIN ER 5 MG TAB PO ONE (06:33)
[2024-11-30 06:51] VITALS: BP 117/62; TEMP 98.2; O2SAT 98; BMI 23.6
[2024-11-30] MEDS ORDERED: Gemcitabine 52.6 ML IS ONE (07:00)
[2024-11-30 07:02] LABS: Specific Gravity 1.009 (1.005-1.030); Urine Bilirubin NEGATIVE (Negative); Urine Blood Negative (Negative); Urine Clarity Clear (Clear); Urine Color Light-Yellow (Yellow); Urine Glucose NEGATIVE (Negative); Urine Ketones NEGATIVE (Negative); Urine Microscopic Reflex YN NO UMIC; Urine Nitrite NEGATIVE (Negative); Urine Protein NEGATIVE (Negative); Urine Urobilinogen Normal (Normal)
[2024-11-30] MEDS: DIAZEPAM 5 MG TABLET ONE (07:03)
[2024-11-30] MEDS: LIDOCAINE JELLY 2% 5 ML SYRINGE TOP ONE (07:07)
--- NOTE | 2024-11-30 19:34 | P.PN ---
Date of Service: 11/30/24 Preprocedure diagnoses: Recurrent bladder tumor p BCG induction and maintenance x 1 h/o T1 high-grade urothelial carcinoma of the bladder Postprocedure diagnoses: Recurrent bladder tumor p BCG induction and maintenance x 1 h/o T1 high-grade urothelial carcinoma of the bladder Principal procedures: Placement of urethral Pizarro catheter Monthly maintenance instillation of intravesical gemcitabine 2 g in 50 cc normal saline Indication for procedure: 74-year-old gentleman chronic smoker with history of focal lamina propria invasion high-grade urothelial carcinoma resected 10/14/2023. He underwent restaging TURBT with no residual disease identified and subsequently underwent an induction course of BCG. Initial follow-up cystoscopy, where the ureteral stent was also extracted, was negative, but after a maintenance phase of the BCG he underwent follow-up cystoscopy which revealed recurrence of a papillary tumor from his right lateral wall. As a result, this was now BCG refractory disease with recurrence within 6 months of initiation of therapy, high risk disease, pathologically found to be TA high-grade disease. 08/25/2024 CT urogram was unremarkable. Post induction intravesical gemcitabine instillation from 09/21/2024 - 11/02/24. Procedure note: The patient was consented in the preoperative holding area, placed supine on the procedure table, and his genitalia prepped with Betadine before being draped in standard fashion. A urinalysis was sent, and he was given a dose of Ditropan 10 mg extended release followed by Valium 5 mg to decrease any bladder spasm activity. Lidocaine Uro-Jet was applied intraurethrally for local anesthesia. An 18 Pry[place]in[place] Pizarro catheter was placed into his bladder with ease. A urinalysis was performed and was nonsuspicious. His bladder was allowed to decompress. During this time, I draped his genitalia with sterile absorbent towels, and I brought his phallus through a hiatus in the drape. His urine was clear yellow. While he had a slight degree of urinary urgency/bladder spasm, he noted it was not as bad this week as it was last week. I then retrograde instilled 52.5 cc of 2 g gentamicin and NS into his bladder with ease and no adverse symptomatology. I attached a leg bag for subsequent ease of decompression after using a Neema clamp to clamp off and keep the fluid within the bladder. He tolerated the instillation well and without any immediate complications. He was allowed to keep the gemcitabine intravesical for as long as he could tolerate, which ended up being about 60 minutes this time, before it was decompressed into an attached leg bag. The catheter was then removed, and the patient was discharged from the holding area in good condition. Complications: None Discharge disposition: Continue monthly maintenance intravesical gemcitabine targeting 2 years of therapy, till 09/2026, plan discussed today with the patient who agreed to continue. Subsequent outpatient cystoscopy around 12/22/2024.
== END 2024-11-30 08:57 | disposition home or self-care (01) ==
LOC: DS 06:24
PROVIDERS: ATTEND Urology
DX: C67.9 Malignant neoplasm of bladder, unspecified (principal); C68.9 Malignant neoplasm of urinary organ, unspecified
CPT/HCPCS: 81003; 51720; J9201

== ENCOUNTER 2025-03-08 07:05 | Day surgery (SDC) | payer OTHER ==
[~2025-03-08 07:05] MED LIST: Gemcitabine 52.6 ML IS ONE
[2025-03-08 07:41] LABS: Urine Culture Reflex Order REFLEXED; Urine Microscopic Reflex YN NO UMIC
[2025-03-08] MEDS: OXYBUTYNIN ER 5 MG TAB PO ONE (07:46)
[2025-03-08] MEDS: DIAZEPAM 5 MG TABLET ONE (07:46)
[2025-03-08] MEDS: LIDOCAINE JELLY 2% 5 ML SYRINGE TOP ONE (08:07)
[2025-03-08 08:57] VITALS: BP 125/69; TEMP 97.8; O2SAT 97; BMI 23.6
--- NOTE | 2025-03-08 17:19 | P.PN ---
Date of Service: 03/08/25 Preprocedure diagnoses: Recurrent bladder tumor p BCG induction and maintenance x 1 h/o T1 high-grade urothelial carcinoma of the bladder Postprocedure diagnoses: Recurrent bladder tumor p BCG induction and maintenance x 1 h/o T1 high-grade urothelial carcinoma of the bladder Principal procedures: Placement of urethral Pizarro catheter Monthly maintenance instillation of intravesical gemcitabine 2 g in 50 cc normal saline Indication for procedure: 74-year-old gentleman chronic smoker with history of focal lamina propria invasion high-grade urothelial carcinoma resected 10/14/2023. He underwent restaging TURBT with no residual disease identified and subsequently underwent an induction course of BCG. Initial follow-up cystoscopy, where the ureteral stent was also extracted, was negative, but after a maintenance phase of the BCG he underwent follow-up cystoscopy which revealed recurrence of a papillary tumor from his right lateral wall. As a result, this was now BCG refractory disease with recurrence within 6 months of initiation of therapy, high risk disease, pathologically found to be TA high-grade disease. 08/25/2024 CT urogram was unremarkable. Post induction intravesical gemcitabine instillation from 09/21/2024 - 11/02/24 without recurrence seen on cystoscopy since then. Procedure note: The patient was consented in the preoperative holding area, placed supine on the procedure table, and his genitalia prepped with Betadine before being draped in standard fashion. A urinalysis was sent, and he was given a dose of Ditropan 10 mg extended release followed by Valium 5 mg to decrease any bladder spasm activity. Lidocaine Uro-Jet was applied intraurethrally for local anesthesia. An 18 Mauritian Pizarro catheter was placed into his bladder with ease. A urinalysis was performed and was nonsuspicious. His bladder was allowed to decompress. During this time, I draped his genitalia with sterile absorbent towels, and I brought his phallus through a hiatus in the drape. His urine was clear yellow. I then retrograde instilled 52.5 cc of 2 g gentamicin and NS into his bladder with ease and no adverse symptomatology. I attached a leg bag for subsequent ease of decompression after using a Neema clamp to clamp off and keep the fluid within the bladder. He tolerated the instillation well and without any imme diate complications. He did have a bladder spasm and a small amount of the chemotherapy did emanate from the urethra, which was immediately absorbed into sterile towels placed beneath the meatus during this portion of the procedure. Only approximately 5 to 10 cc was lost, and the spasm subsided. The chemotherapy soaked portion of the towel was then folded away from the tip of the penis. He was then allowed to keep the gemcitabine intravesical for as long as he could tolerate, targeting 90 minutes of total therapy time, before it was decompressed into an attached leg bag. The catheter was then removed, and the patient was discharged from the holding area in good condition. Complications: None Discharge disposition: Continue monthly maintenance intravesical gemcitabine targeting 2 years of therapy, till 09/2026. Subsequent outpatient cystoscopy as scheduled from his outpatient cystoscopy appoinment.
== END 2025-03-08 10:15 | disposition home or self-care (01) ==
LOC: DS 07:05
PROVIDERS: ATTEND Urology
PROC: 3E0K705 Introduction of Other Antineoplastic into Genitourinary Tract, Via Natural or Artificial Opening (ICD-10-PCS; principal; 2025-03-08)
DX: C67.9 Malignant neoplasm of bladder, unspecified (principal); C68.9 Malignant neoplasm of urinary organ, unspecified; F17.210 Nicotine dependence, cigarettes, uncomplicated
CPT/HCPCS: 87088; 87086; 81003; 51720; J9201

== ENCOUNTER 2025-04-26 07:58 | Day surgery (SDC) | payer OTHER ==
[2025-04-26 08:37] LABS: Urine Culture Reflex Order REFLEXED; Urine Microscopic Reflex YN NO UMIC
[2025-04-26] MEDS: OXYBUTYNIN ER 5 MG TAB PO ONE (08:49)
[2025-04-26] MEDS: DIAZEPAM 5 MG TABLET ONE (08:50)
[2025-04-26] MEDS: LIDOCAINE JELLY 2% 5 ML SYRINGE TOP ONE (08:50)
[2025-04-26] MEDS ORDERED: Gemcitabine 52.6 ML IS ONE (09:00)
[2025-04-26 12:34] VITALS: BP 119/68; O2SAT 97; BMI 24.3
[2025-04-26 12:36] VITALS: TEMP 98.7
--- NOTE | 2025-04-26 14:52 | P.PN ---
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 He underwent restaging TURBT with no residual disease identified and subsequently underwent an induction course of BCG. Initial follow-up cystoscopy, where the ureteral stent was also extracted, was negative, but after a maintenance phase of the BCG he underwent follow-up cystoscopy which revealed recurrence of a papillary tumor from his right lateral wall. As a result, this was now BCG refractory disease with recurrence within 6 months of initiation of therapy, high risk disease, pathologically found to be TA high-grade disease. 08/25/2024 CT urogram was unremarkable. Post induction intravesical gemcitabine instillation from 09/21/2024 - 11/02/24 without recurrence seen on cystoscopy since then. Procedure note: The patient was consented in the preoperative holding area, placed supine on the procedure table, and his genitalia prepped with Betadine before being draped in standard fashion. A urinalysis was sent, and he was given a dose of Ditropan 10 mg extended release followed by Valium 5 mg to decrease any bladder spasm activity. Lidocaine Uro-Jet was applied intraurethrally for local anesthesia. An 18 [place] Pizarro catheter was placed into his bladder with ease. A urinalysis was performed and was nonsuspicious. His bladder was allowed to decompress. During this time, I draped his genitalia with sterile absorbent towels, and I brought his phallus through a hiatus in the drape. His urine was clear yellow. I then retrograde instilled 52.5 cc of 2 g gentamicin and NS into his bladder with ease and no adverse symptomatology. I attached a leg bag for subsequent ease of decompression after using a Neema clamp to clamp off and keep the fluid within the bladder. He tolerated the instillation well and without any imme diate complications. He did have a bladder spasm and a small amount of the chemotherapy did emanate from the urethra, which was immediately absorbed into sterile towels placed beneath the meatus during this portion of the procedure. Only approximately 10-15 cc was lost, and the spasm subsided. The chemotherapy soaked portion of the towel was then folded away from the tip of the penis. He was then allowed to keep the gemcitabine intravesical for as long as he could tolerate, targeting 90 minutes of total therapy time, before it was decompressed into an attached leg bag. The catheter was then removed, and the patient was discharged from the holding area in good condition. Complications: None Discharge disposition: Switch monthly maintenance intravesical therapy to Mitomycin-C 20 mg and 20 cc sterile H2O, effective next month, targeting 2 years of therapy, till 09/2026. Subsequent outpatient cystoscopy as scheduled from his outpatient cystoscopy appoinment.
== END 2025-04-26 10:30 | disposition home or self-care (01) ==
LOC: DS 07:58
PROVIDERS: ATTEND Urology
PROC: 3E0K705 Introduction of Other Antineoplastic into Genitourinary Tract, Via Natural or Artificial Opening (ICD-10-PCS; principal; 2025-04-26)
DX: C67.9 Malignant neoplasm of bladder, unspecified (principal); C68.9 Malignant neoplasm of urinary organ, unspecified; F17.210 Nicotine dependence, cigarettes, uncomplicated; Z51.11 Encounter for antineoplastic chemotherapy
CPT/HCPCS: 51720; 81003; 87086; 87088; J9201